=== PATIENT | female | born 1955 | race Caucasian/White ===

== ENCOUNTER 2019-06-11 14:41 | Outpatient (REF) | payer SELFPAY ==
[2019-06-11 18:25] LABS: Chol HDL Ratio 5.75 mg/dL (0.0-4.40); Cholesterol 230 mg/dL (0-200); Glucose 102 mg/dL (65-115); HDL Cholesterol 40 mg/dL (60-100); LDL Cholesterol Calculated 138 mg/dL (50-129); LDL HDL Ratio 3.45 RATIO (0.00-3.22); Triglycerides 258 mg/dL (0-150)
[2019-06-11 21:10] LABS: Estmated Average Glucose 111; Hemoglobin A1C 5.5 % (4.0-6.0)
== END 2019-06-11 14:42 | disposition home or self-care (01) ==
LOC: LAB 14:41
PROVIDERS: Family Provider Nurse Practitioner Family; Visit Provider Dermatology
DX: Z13.9 Encounter for screening, unspecified (principal)
CPT/HCPCS: 80061; 82947; 83036

== ENCOUNTER → 2022-02-06 17:09 | Outpatient (BNVA) | payer MEDICARE, BC, SELFPAY | PROVIDERS: Family Provider Nurse Practitioner Family; Visit Provider Internal Medicine | DX: N81.10 Cystocele, unspecified (principal); R30.0 Dysuria | CPT/HCPCS: 81000 ==

== ENCOUNTER → 2022-03-06 13:00 | Outpatient (BNVA) | payer MEDICARE, BC, SELFPAY | PROVIDERS: Family Provider Nurse Practitioner Family; Visit Provider Obstetrics & Gynecology | DX: N81.10 Cystocele, unspecified (principal); R31.9 Hematuria, unspecified; R10.2 Pelvic and perineal pain | CPT/HCPCS: 81000; 87086 ==